=== PATIENT | male | born 1975 | race Caucasian/White ===

== ENCOUNTER 2018-09-09 13:13 | Emergency (ER) | payer BC ==
[2018-09-09 13:44] VITALS: BP 139/89
--- NOTE | 2018-09-09 13:55 | UC ---
General HPI - HPI Summary HPI Summary: Here for sore throat for the past week. Today he feels better overall. Told his about his sore throat and white spots on tongue an made him come here to get tested for strep. A week ago had a URI, with PND and sinus headache - all of which have improved. No N/V/D. No abdominal pain. No rash. No fever. Good PO. Meds: reviewed - History of Current Complaint Chief Complaint: UCRespiratory Stated Complaint: SORE THROAT Time Seen by Provider: 09/09/18 13:36 Pain Intensity: 0 - Allergy/Home Medications Allergies/Adverse Reactions: Allergies Allergy/AdvReac Type Severity Reaction Status Date / Time carbamazepine [From Tegretol] Allergy Rash Verified 09/09/18 13:39 oxcarbazepine Allergy See Comment Verified 09/09/18 13:39 Home Medications: Home Medications lamoTRIgine [Lamictal] 100 mg PO BID 09/09/18 [History Confirmed 09/09/18] PMH/Surg Hx/FS Hx/Imm Hx Previously Healthy: Yes Neurological History: Seizures Psychological History: Depression - Surgical History Surgical History: Yes Surgery Procedure, Year, and Place: LIP GROWTH BENIGN. ANGIOGRAM STAPLE IN RIGHT GROIN AREA (CLOSURE AFTER ANGIOGRAM). CYST REMOVED FROM BACK. COLONSCOPY (NO POLYPS) - Social History Alcohol Use: Occasionally Substance Use Type: None Smoking Status (MU): Never Smoked Tobacco - Immunization History Most Recent Influenza Vaccination: September 2015 Review of Systems Constitutional: Negative Skin: Negative ENT: Sore Throat Respiratory: Negative Cardiovascular: Negative Gastrointestinal: Negative All Other Systems Reviewed And Are Negative: Yes Physical Exam Triage Information Reviewed: Yes Appearance: Well-Appearing, No Pain Distress Vital Signs: Initial Vital Signs Temp 97.1 F 09/09/18 13:40 Pulse 84 09/09/18 13:40 Resp 16 09/09/18 13:40 BP 139/89 09/09/18 13:40 Pulse Ox 97 09/09/18 13:40 Vital Signs Reviewed: Yes Eye Exam: Normal Eyes: Positive: Conjunctiva Clear ENT: Positive: Pharyngeal erythema, TMs normal Neck exam: Normal Neck: Positive: Supple, Nontender Respiratory: Positive: Lungs clear, Normal breath sounds, No respiratory distress Cardiovascular: Positive: RRR, No Murmur Skin Exam: Normal Course/Dx - Course Course Of Treatment: This is a 42 yr old with unremarkable PMHx who presents with a sore throat. Assessment. Nontoxic appearing. Rapid strep: negative. Dx: Viral Syndrome. Plan. Rapid Strep: Negative. Continue supportive care. Continue fluids and ibuprofen as needed for pain. If symptoms persist or worsen , call primary for further evaluation - Differential Dx - Multi-Symptom Provider Diagnoses: Viral Syndrome Discharge - Sign-Out/Discharge Documenting (check all that apply): Patient Departure All imaging exams completed and their final reports reviewed: No Studies - Discharge Plan Condition: Good Disposition: HOME Patient Education Materials: Viral Syndrome (ED) Referrals: Austin Mcmahon MD [Primary Care Provider] - Additional Instructions: Rapid Strep: Negative Continue supportive care Continue fluids and ibuprofen as needed for pain If symptoms persist or worsen, call primary for further evaluation - Billing Disposition and Condition Condition: GOOD Disposition: Home
[2018-09-09] MEDS ORDERED: Sertraline* 50 MG TAB PO SCH (21:00)
[2018-09-09] MEDS ORDERED: lamoTRIgine TAB(*) 100 MG PO SCH (21:00)
== END 2018-09-09 14:06 | disposition home or self-care (01) ==
LOC: UCCORT 13:13
DX: B34.9 Viral infection, unspecified (principal); R56.9 Unspecified convulsions; Z88.8 Allergy status to other drugs, medicaments and biological substances; Z79.899 Other long term (current) drug therapy
CPT/HCPCS: 87651; 99211; G0463